=== PATIENT | female | born 1950 | race Hispanic/Latino ===

== ENCOUNTER 2021-11-21 23:36 | Emergency (ER) | payer MEDICARE ==
[2021-11-22] MEDS ORDERED: Morphine 4 MG/ML VIAL ONE (00:15)
[2021-11-22] MEDS ORDERED: Ketorolac Tromethamine 30 MG/ML VIAL ONE (00:15)
== END 2021-11-22 00:35 | disposition home or self-care (01) ==
LOC: CSHERS 23:36
DX: M54.41 Lumbago with sciatica, right side (principal); E11.22 Type 2 diabetes mellitus with diabetic chronic kidney disease; I12.9 Hypertensive chronic kidney disease with stage 1 through stage 4 chronic kidney disease, or unspecified chronic kidney disease; N18.30 Chronic kidney disease, stage 3 unspecified
CPT/HCPCS: 96372; 99283; J1885; J2270

== ENCOUNTER 2022-05-31 15:10 | Observation (INO) | payer MEDICARE ==
[2022-05-31 15:35] LABS: #Eosinphils 0.2 10x3/uL (0.0-0.5); #Monocytes 0.5 10x3/uL (0.0-1.1); #Neutrophils 4.1 10x3/uL (1.5-8.4); %Basophils 0.6 % (0.0-2.0); %Eosinophils 2.9 % (0.0-6.0); %Lymphocytes 30.1 % (18.0-47.0); %Monocytes 7.6 % (0.0-10.0); %Neutrophils 58.5 % (40.0-75.0); Hemoglobin 10.5 g/dL (12.0-15.5); Mean Corpuscular HGB CONC 32.8 g/dL (32.0-36.0); Mean Corpuscular Hemoglobin 28.4 pg (27.0-33.0); Mean Corpuscular Volume 86.5 fl (81.6-98.3); Mean Platelet Volume 10.2 fl (7.4-10.4); Platelet Count 184 10x3/uL (150-450); RBC Distribution Width 14.4 % (11.5-14.5)
[2022-05-31 15:53] LABS: ALT (SGPT) 16 U/L (8-55); AST (SGOT) 21 U/L (5-34); Albumin 3.9 g/dL (3.4-4.8); Alkaline Phosphatase 109 U/L (40-110); Anion Gap 14 mmol/L (10-20); BUN (Urea Nitrogen) 21 mg/dL (9.8-20.1); Bilirubin, Total 0.8 mg/dL (0.2-1.2); Calc. Creatinine Clearance 0 mL/min (70-130); Calcium 9.1 mg/dL (7.8-10.44); Carbon Dioxide 27 mmol/L (23-31); Chloride 98 mmol/L (98-107); Estimated GFR 61; Globulin 2.7 g/dL (2.4-3.5); Glucose 367 mg/dL (80-115); Potassium 4.3 mmol/L (3.5-5.1); Protein, Total 6.6 g/dL (5.8-8.1); Sodium 135 mmol/L (136-145)
[2022-05-31 16:15] LABS: CKMB 2.6 ng/mL (0-6.6)
[2022-05-31 17:37] LABS: Bilirubin Neg (Negative); Blood, Urine Negative (Negative); Clarity Clear (Clear); Glucose, Urine (Dipstick) >=1000 mg/dL (Negative); Ketone, Urine Negative (Negative); Leukocyte Negative (Negative); Nitrite Negative (Negative); Protein, Urine (Dipstick) 30 mg/dl (Neg-Trace); Urobilinogen Normal mg/dL (Less than 2)
[2022-05-31 18:02] LABS: RBC/HPF 0-3 HPF (0-3); Squamous Epithelial 0-3 HPF (0-3); WBC/HPF 0-3 HPF (0-3)
[2022-05-31 18:03] LABS: Bacteria/HPF Rare-Few HPF (None Seen)
[2022-05-31 19:03] LABS: SARS-CoV-2 NAA Rapid Test DETECTED (NotDetected)
[2022-05-31] MEDS ORDERED: Nitroglycerin 0.4 MG TAB (25 Tab Bottle) SL PRN (21:12)
[2022-05-31] MEDS ORDERED: Ondansetron ODT 4 MG TAB PO PRN (21:15)
[2022-05-31] MEDS ORDERED: Acetaminophen 325 MG TAB PO PRN (21:15)
[2022-05-31] MEDS ORDERED: Senokot S 8.6-50 MG TAB PO PRN (21:15)
[2022-05-31] MEDS ORDERED: Dextrose 5% in Water 1,000 ML IV PRN (21:16)
[2022-05-31] MEDS ORDERED: Dextrose 50% Abboject 50 ML SYRINGE SLOW IVP PRN (21:16)
[2022-05-31] MEDS ORDERED: Amlodipine 5 MG TAB PO SCH (21:45)
[2022-05-31] MEDS ORDERED: Simvastatin 10 MG TAB PO SCH (22:00)
[2022-05-31 22:14] LABS: Troponin I 0.122 ng/mL (< 0.028)
[2022-05-31] MEDS: HumaLOG 300 UNITS/3 ML VIAL SC PRN (22:35)
[2022-05-31 22:36] LABS: Hemoglobin A1c 11.2 % (4.0-6.0)
[2022-05-31 23:53] VITALS: BMI 31.3
[2022-06-01 01:05] LABS: Troponin I 0.115 ng/mL (< 0.028)
[2022-06-01 05:20] LABS: #Eosinphils 0.2 10x3/uL (0.0-0.5); #Monocytes 0.5 10x3/uL (0.0-1.1); %Basophils 0.5 % (0.0-2.0); %Eosinophils 4.1 % (0.0-6.0); %Lymphocytes 36.3 % (18.0-47.0); %Monocytes 8.1 % (0.0-10.0); %Neutrophils 50.8 % (40.0-75.0); Hemoglobin 10.4 g/dL (12.0-15.5); Mean Corpuscular HGB CONC 33.1 g/dL (32.0-36.0); Mean Corpuscular Hemoglobin 28.5 pg (27.0-33.0); Platelet Count 165 10x3/uL (150-450); RBC Distribution Width 14.3 % (11.5-14.5); Red Blood Cell (RBC) Count 3.65 10x6/uL (3.90-5.03); White Blood Cell (WBC) Count 5.9 10x3/uL (3.5-10.5)
[2022-06-01 05:22] LABS: Anion Gap 12 mmol/L (10-20); BUN (Urea Nitrogen) 18 mg/dL (9.8-20.1); Calc. Creatinine Clearance 71 mL/min (70-130); Calcium 8.8 mg/dL (7.8-10.44); Carbon Dioxide 27 mmol/L (23-31); Cardiac Risk 2.2 (Less than 4.5); Chloride 104 mmol/L (98-107); Cholesterol 129 mg/dl (< 200 Desired); Estimated GFR 77; Glucose 232 mg/dL (80-115); HDL Cholesterol 58 mg/dL (>60 Neg Risk); LDL Cholesterol, Calculated 58 mg/dL; Potassium 4.1 mmol/L (3.5-5.1); Sodium 139 mmol/L (136-145); Triglycerides 66 mg/dL (Less than 150)
[2022-06-01] MEDS: HumaLOG 300 UNITS/3 ML VIAL SC PRN ×4 (06:50→21:15)
[2022-06-01] MEDS ORDERED: metFORMIN 500 MG TAB PO SCH (08:00)
[2022-06-01] MEDS: Aspirin Chewable 81 MG TAB PO SCH (08:42)
[2022-06-01] MEDS: Alogliptin 25 MG TAB PO SCH (08:42)
[2022-06-01] MEDS: Losartan Potassium 50 MG TAB PO SCH (08:42)
[2022-06-01] MEDS: Hydrochlorothiazide 25 MG TAB PO SCH (08:42)
[2022-06-01] MEDS: Famotidine 20 MG TAB PO SCH ×2 (08:42→21:11)
[2022-06-01] MEDS: metFORMIN 500 MG TAB PO SCH (16:45)
[2022-06-01] MEDS ORDERED: Amlodipine 5 MG TAB PO SCH (21:00)
[2022-06-01] MEDS ORDERED: HumaLOG 300 UNITS/3 ML VIAL SC SCH (21:00)
[2022-06-01] MEDS ORDERED: Simvastatin 10 MG TAB PO SCH (21:00)
[2022-06-02 07:09] LABS: #Eosinphils 0.1 10x3/uL (0.0-0.5); #Monocytes 0.5 10x3/uL (0.0-1.1); #Neutrophils 4.2 10x3/uL (1.5-8.4); %Basophils 0.6 % (0.0-2.0); %Eosinophils 1.6 % (0.0-6.0); %Lymphocytes 30.3 % (18.0-47.0); %Monocytes 7.7 % (0.0-10.0); %Neutrophils 59.7 % (40.0-75.0); Hemoglobin 9.7 g/dL (12.0-15.5); Mean Corpuscular Hemoglobin 28.4 pg (27.0-33.0); Mean Corpuscular Volume 86.2 fl (81.6-98.3); Mean Platelet Volume 10.1 fl (7.4-10.4); Platelet Count 161 10x3/uL (150-450); RBC Distribution Width 14.6 % (11.5-14.5); Red Blood Cell (RBC) Count 3.41 10x6/uL (3.90-5.03)
[2022-06-02 07:24] LABS: Anion Gap 12 mmol/L (10-20); BUN (Urea Nitrogen) 25 mg/dL (9.8-20.1); Calc. Creatinine Clearance 58 mL/min (70-130); Calcium 8.8 mg/dL (7.8-10.44); Carbon Dioxide 27 mmol/L (23-31); Chloride 99 mmol/L (98-107); Estimated GFR 61; Glucose 244 mg/dL (80-115); Potassium 4.3 mmol/L (3.5-5.1); Sodium 134 mmol/L (136-145)
[2022-06-02] MEDS ORDERED: HumaLOG 300 UNITS/3 ML VIAL SC SCH (09:00)
[2022-06-02] MEDS ORDERED: Carvedilol 6.25 MG TAB PO SCH ×2 (09:15→17:00)
[2022-06-02] MEDS: metFORMIN 500 MG TAB PO SCH (09:40)
[2022-06-02] MEDS: Aspirin Chewable 81 MG TAB PO SCH (09:40)
[2022-06-02] MEDS: Losartan Potassium 50 MG TAB PO SCH (09:41)
[2022-06-02] MEDS: Famotidine 20 MG TAB PO SCH (09:41)
[2022-06-02] MEDS: Alogliptin 25 MG TAB PO SCH (09:41)
[2022-06-02] MEDS: Hydrochlorothiazide 25 MG TAB PO SCH (09:41)
[2022-06-02 17:28] VITALS: BP 138/61; TEMP 96.2
== END 2022-06-02 16:00 | disposition home or self-care (01) ==
LOC: CSHERS 15:10 → CSHTELE 21:38
PROVIDERS: ADMIT Student in an Organized Health Care Education/Training Program; ATTEND Internal Medicine
DX: R60.0 Localized edema (principal); U07.1 COVID-19; I13.0 Hypertensive heart and chronic kidney disease with heart failure and stage 1 through stage 4 chronic kidney disease, or unspecified chronic kidney disease; I50.30 Unspecified diastolic (congestive) heart failure; N18.30 Chronic kidney disease, stage 3 unspecified; R77.8 Other specified abnormalities of plasma proteins; E78.5 Hyperlipidemia, unspecified; E11.9 Type 2 diabetes mellitus without complications; I35.0 Nonrheumatic aortic (valve) stenosis; Z90.49 Acquired absence of other specified parts of digestive tract; Z90.710 Acquired absence of both cervix and uterus; Z79.82 Long term (current) use of aspirin; Z79.899 Other long term (current) drug therapy; Z79.84 Long term (current) use of oral hypoglycemic drugs; Z79.4 Long term (current) use of insulin
CPT/HCPCS: 71045; 80048 ×2; 80053; 80061; 82553; 82962 ×3; 83036; 83880; 84484 ×3; 85025 ×3; 93005; 93306; 96365; 97116; 99284; U0002; 36415; 36416; 81003; 81015; 96372; G0378; J1650; J1815

== ENCOUNTER 2022-06-08 22:45 | Emergency (ER) | payer OTHER, MEDICARE ==
[2022-06-08] MEDS ORDERED: Ketorolac Tromethamine 30 MG/ML VIAL ONE (23:50)
[2022-06-08] MEDS ORDERED: Acetaminophen/Codeine 30-300mg Tablet ONE (23:55)
== END 2022-06-09 00:17 | disposition home or self-care (01) ==
LOC: CSHERS 22:45
DX: S22.32XA Fracture of one rib, left side, initial encounter for closed fracture (principal); S20.212A Contusion of left front wall of thorax, initial encounter; E11.22 Type 2 diabetes mellitus with diabetic chronic kidney disease; N18.30 Chronic kidney disease, stage 3 unspecified; I12.9 Hypertensive chronic kidney disease with stage 1 through stage 4 chronic kidney disease, or unspecified chronic kidney disease; W01.0XXA Fall on same level from slipping, tripping and stumbling without subsequent striking against object, initial encounter
CPT/HCPCS: 96372; J1885